=== PATIENT | male | born 1950 | race Caucasian/White ===

== ENCOUNTER 2016-11-17 08:48 | Day surgery (SDC) | payer MEDICARE, OTHER ==
[2016-11-12 14:42] VITALS: BMI 26.2
[2016-11-17] MEDS ORDERED: LACTATED RINGERS 1,000 ML IV SCH (08:53)
[2016-11-17] MEDS ORDERED: LIDOCAINE 1% 20 ML VIAL (10MG/ML) FOR IV START INTRADERMA ONE (08:57)
[2016-11-17 09:10] VITALS: RESP 16; TEMP 97
[2016-11-17] MEDS ORDERED: PROPOFOL 10 MG/ML 20 ML VIAL IV ONE (09:43)
[2016-11-17] MEDS ORDERED: LIDOCAINE 1% INJ 10MG/ML (20 ML MDV) ONE (09:43)
--- NOTE | 2016-11-17 10:10 | P.PCN ---
Date of Procedure: 11/17/16 Procedure(s) Performed: Procedure: Total colonoscopy. Preoperative diagnosis: Screening for neoplasia. Postoperative diagnosis: Diverticulosis with no evidence of acute diverticulitis , strictures, polyps or cancer. Preparation: HalfLytely prep. Sedation: Was provided by anesthesia. Brief clinical history: The patient is a 66-year-old male who is referred for this evaluation for screening for neoplasia, age being his risk factor. He has no abdominal complaints, bleeding or anemia. He had a prior colonoscopy more than 35 years ago and he does not believe he had any polyps removed at that time. At this time, he has no abdominal complaints, bleeding or anemia. Procedure: With the patient on his left lateral decubitus position and after informed consent and adequate sedation, the perianal area was inspected and it did not show any fissures or fistulas. There were no masses felt on digital rectal examination. The Olympus CFQ 160L video colonoscope was then inserted in the rectum in the usual fashion and advanced to the cecum. There were several diverticular orifices seen scattered in the sigmoid and occasional small diverticular orifice was seen around the hepatic flexure and on the right side with no evidence of acute diverticulitis or strictures. The mucosa appeared healthy. No polyps or tumors were seen. I retroflexed endoscope in the rectum before the endoscope was withdrawn. The patient tolerated the procedure well. Plan: The patient was reassured. Discussed dietary measures. In the absence of family history of colon cancer or finding of polyps today I recommended repeat exam in 10 years. He will follow up with you as planned.
[2016-11-17 10:19] VITALS: BP 123/75; PULSE 58
== END 2016-11-17 10:51 | disposition home or self-care (01) ==
LOC: ORWHC2ENDO 08:48
DX: Z12.11 Encounter for screening for malignant neoplasm of colon (principal); K57.30 Diverticulosis of large intestine without perforation or abscess without bleeding; Z86.711 Personal history of pulmonary embolism; Z79.01 Long term (current) use of anticoagulants
CPT/HCPCS: J2001; J2704; G0121; 45378

== ENCOUNTER 2018-05-21 14:25 | Emergency (ER) | payer MEDICARE, OTHER ==
--- NOTE | 2018-05-21 15:13 | ED ---
Skin/Abscess/FB HPI - General Chief complaint: Skin/Abscess/Foreign Body Stated complaint: Rash Time Seen by Provider: 05/21/18 14:45 Source: patient, RN notes reviewed, old records reviewed Mode of arrival: ambulatory Limitations: no limitations - History of Present Illness Initial comments: 68-year-old male presents emergency murmurs at a chief complaint concern for bedbugs and scabies. Patient reports that he recently picked up a chair and back sprain off the side of the road. 40 brought into the house and later did notice there was bedbugs. Patient states that this happened last week. Patient reports he is planning to get his house fumigated on Wednesday. Patient also states that over the weekend he was fishing. He rated a homeless man to his house. He states that the homeless man had dinner with him and subsequently uses towels and toiletry products. Patient reports he knows little black specks in his deodorant is concerned that he has scabies. He reports he's had appear to crash. Patient states that he has had no other symptoms at this time. - Related Data Home Medications Medication Instructions Recorded Confirmed Atorvastatin [Lipitor] 10 mg PO HS 11/12/16 05/21/18 Lisinopril [Zestril] 20 mg PO DAILY 11/12/16 05/21/18 Naproxen [Naprosyn] 375 mg PO Q12HR 11/12/16 05/21/18 Rivaroxaban [Xarelto] 20 mg PO DAILY 11/12/16 05/21/18 Previous Rx's Medication Instructions Recorded Permethrin 5% Cream [Elimite] 1 applic TOPICAL DAILY #1 tube 05/21/18 Allergies Allergy/AdvReac Type Severity Reaction Status Date / Time No Known Allergies Allergy Verified 05/21/18 14:33 Review of Systems ROS Statement: Those systems with pertinent positive or pertinent negative responses have been documented in the HPI. ROS Other: All systems not noted in ROS Statement are negative. Past Medical History Past Medical History: Hyperlipidemia, Hypertension, Pulmonary Embolus (PE) Additional Past Medical History / Comment(s): blood clot and PE History of Any Multi-Drug Resistant Organisms: None Reported Past Surgical History: Tonsillectomy Additional Past Surgical History / Comment(s): Colonoscopy years ago Past Anesthesia/Blood Transfusion Reactions: No Reported Reaction Past Psychological History: No Psychological Hx Reported Smoking Status: Former smoker Past Alcohol Use History: Occasional Past Drug Use History: None Reported - Past Family History Father Family Medical History: Cancer General Exam - General Exam Comments Initial Comments: Well-appearing 68-year-old male. Alert and oriented. No acute distress. General: Well appearing, well nourished, in no distress. Oriented x 3, normal mood and affect . Ambulating without difficulty. Skin: Good turgor, evidence of raised erythematous papular rash over the right axilla and antecubital fossa. He complains of lesions that was tunneling. No other suspicious lesions noted. Hair: Normal texture and distribution. HEENT: Head: Normocephalic, atraumatic, no visible or palpable masses, depressions, or scaring. Eyes: Visual acuity intact, conjunctiva clear, sclera non-icteric, EOM intact, PERRL. Ears: EACs clear, TMs translucent & cone of light visualized. hearing intact. Nose: No external lesions, mucosa non-inflamed, septum and turbinates normal Mouth: Mucous membranes moist, no mucosal lesions. Teeth/Gums: No obvious caries or periodontal disease. No gingival inflammation or significant resorption. Pharynx: Mucosa non-inflamed, no tonsillar hypertrophy or exudate Neck: Supple, without lesions, bruits, or adenopathy, thyroid non-enlarged and non-tender Heart: No cardiomegaly or thrills; regular rate and rhythm, no murmur or gallop Lungs: Clear to auscultation and percussion Abdomen: Bowel sounds normal, no tenderness, organomegaly, masses, or hernia Extremities: No amputations or deformities, cyanosis, edema or varicosities, peripheral pulses intact Musculoskeletal: Normal gait and station. No misalignment, asymmetry, crepitation, defects, tenderness, masses, effusions, decreased range of motion, instability, atrophy or abnormal strength or tone in the head, neck, spine, ribs , pelvis or extremities. Neurologic: CN 2-12 normal. Sensation to pain, touch, and proprioception normal. DTRs normal in upper and lower extremities. No pathologic reflexes. Psychiatric: Oriented X3, intact recent and remote memory, judgment and insight , normal mood and affect. Limitations: no limitations Course Vital Signs 05/21/18 05/21/18 14:30 15:32 Temperature 97.5 F L 98.3 F Pulse Rate 99 83 Respiratory 18 20 Rate Blood Pressure 205/104 198/108 O2 Sat by Pulse 98 99 Oximetry Medical Decision Making - Medical Decision Making 68-year-old presents from today concern for exposure to scabies bedbugs. He has some areas over the right axilla that appeared consistent with scabies with raised papular rash and some linear excoriation. Patient has been using triamcinolone from his neighbor. Discussed that will help with the treatment will not totally cured this. We'll discharge the Patient with permethrin cream. He also drinks coffee be treated for bedbugs. Discussed that he needs to wash all his bedding in hot water and closed in hot water. Discussed the proper treatment for permethrin cream. It is unknown the Patient is hypertensive upon arrival. He denies any complaints of the chest pain returns breath or headaches. Patient reports he is due for his blood pressure medication. I will give the Patient 1 L of Catapres. He does not want to stay for recheck blood pressure. Discussed that he has had prompt follow-up with his primary care physician. Patient agrees to treatment plan will comply. Term parameters were discussed. Disposition Clinical Impression: Scabies exposure, Hypertension Disposition: HOME SELF-CARE Condition: Good Instructions: Scabies (ED) Additional Instructions: Patient has follow-up with her primary care physician in regards to blood pressure as well as states that cream as prescribed. Patient should all clothes in hot water and bedding in hot water. Apply the cream on its after taking a shower and sleep with it on overnight, shower again in the morning. Repeat the treatment and one week. Prescriptions: Permethrin 5% Cream [Elimite] 1 applic TOPICAL DAILY #1 tube Is patient prescribed a controlled substance at d/c from ED?: No Referrals: [facility],Clinic [Primary Care Provider] - 1-2 days Time of Disposition: 15:12
[2018-05-21] MEDS ORDERED: cloNIDine HCL 0.2 MG TAB PO STA (15:16)
[2018-05-21 15:35] VITALS: BP 198/108; PULSE 83; RESP 20; TEMP 98.3
== END 2018-05-21 15:32 | disposition home or self-care (01) ==
LOC: EC 14:25
DX: Z20.7 Contact with and (suspected) exposure to pediculosis, acariasis and other infestations (principal); I10 Essential (primary) hypertension; E78.5 Hyperlipidemia, unspecified; Z86.711 Personal history of pulmonary embolism; Z87.891 Personal history of nicotine dependence; Z79.01 Long term (current) use of anticoagulants; Z79.1 Long term (current) use of non-steroidal anti-inflammatories (NSAID); Z79.899 Other long term (current) drug therapy; Z53.29 Procedure and treatment not carried out because of patient's decision for other reasons
CPT/HCPCS: 99283